=== PATIENT | female | born 1980 | race Caucasian/White ===

== ENCOUNTER 2024-04-08 10:37 | Emergency (ER) | payer OTHER, SELFPAY ==
[2024-04-08 10:38] VITALS: BMI 27.3
[2024-04-08 10:43] VITALS: BP 108/69; PULSE 92; RESP 16; TEMP 36.6; O2SAT 97
--- NOTE | 2024-04-08 10:46 | XR_ITS ---
Examination: Tibia-Fibula, left , 2 views Technique: Tibia-fibula AP lateral 2 views Date and time of exam: March 11, 2024 1054 hours INDICATIONS: Injury to lower leg yesterday, lower leg pain. FINDINGS: Acute nondisplaced fractures distal fibula Tibia intact IMPRESSION: Acute nondisplaced fractures distal fibula
--- NOTE | 2024-04-08 10:46 | XR_ITS ---
EXAMINATION: Ankle, left 3 views . Technique: Ankle AP, oblique, lateral 3 views Date and time of exam: April 08, 2024 1054 hours INDICATIONS: Injury to the ankle yesterday ankle pain. FINDINGS: Acute fractures distal fibula, without significant displacement No ankle dislocation IMPRESSION: Acute fractures distal fibular
--- NOTE | 2024-04-08 10:54 | PD.EDANKLE ---
Lower Extremity Injury RME/HPI General Chief Complaint: Ankle/Foot Injury Stated Complaint: FALL YESTERDAY, LEFT LEG/ANKLE PAIN Time Seen by Provider: 04/08/24 10:47 Source: patient Arrival date/time: 04/08/24 10:37 44-year-old female with no known medical history presents to the emergency room with a chief complaint of left ankle and leg pain after a fall that occurred yesterday afternoon. Mode of arrival: ambulatory Limitations: no limitations Related Data Allergies Allergy/AdvReac Type Severity Reaction Status Date / Time No Known Allergies Allergy Verified 04/08/24 10:38 Review of Systems Review of Systems Systems Reviewed: All systems reviewed, normal except as documented Constitutional Constitutional: Reports system reviewed and no additional complaints, except as documented, Denies fatigue, Denies fever(s), Denies headache(s) and Denies weakness Eyes Eyes: Reports system reviewed and no additional complaints, except as documented, Denies blurry vision and Denies change in vision ENT Ears, Nose, Mouth, and Throat: Reports system reviewed and no additional complaints, except as documented, Denies otalgia, Denies headache(s), Denies nasal congestion, Denies throat swelling and Denies vertigo Cardiovascular Cardiovascular: Reports system reviewed and no additional complaints, except as documented, Denies chest pain, Denies dyspnea and Denies dyspnea on exertion Respiratory Respiratory: Reports system reviewed and no additional complaints, except as documented, Denies chest congestion, Denies cough, Denies dyspnea, Denies dyspnea on exertion and Denies wheezing Gastrointestinal Gastrointestinal: Reports system reviewed and no additional complaints, except as documented, Denies abdominal pain, Denies cramping, Denies nausea and Denies vomiting Genitourinary Genitourinary: Reports system reviewed and no additional complaints, except as documented Musculoskeletal Musculoskeletal: Reports system reviewed and no additional complaints, except as documented, Reports abnormal gait, Reports arthralgias, Denies back pain and Reports limited range of motion Integumentary/Breasts Skin/Breast: Reports system reviewed and no additional complaints, except as documented and Denies wounds Neurologic Neurologic: Reports system reviewed and no additional complaints, except as documented, Reports abnormal gait, Denies confusion, Denies headache(s), Denies lack of coordination, Denies vertigo and Denies weakness Psychiatric Psychiatric: Reports system reviewed and no additional complaints, except as documented, Denies anxiety, Denies confusion, Denies depression, Denies paranoia, Denies suicidal ideation and Denies tactile hallucinations Endocrine Endocrine: Reports system reviewed and no additional complaints, except as documented and Denies fatigue Hematologic/Lymphatic Hematologic/Lymphatic: Reports system reviewed and no additional complaints, except as documented and Denies lymphadenopathy Allergic/Immunologic Allergic/Immunologic: Reports system reviewed and no additional complaints, except as documented, Denies throat swelling, Denies urticaria and Denies wheezing Past Medical History Social History SMOKING STATUS: Never smoker ED Exam General Limitations: Present no limitations General appearance: Present alert and in no apparent distress Head Head exam: Present atraumatic Eye Eye exam: Present normal appearance, PERRL and EOMI ENT ENT exam: Present normal exam, normal oropharynx and mucous membranes moist Neck Neck exam: Present normal inspection, full ROM and trachea midline Chest Chest inspection: Present normal inspection and symmetric chest wall rise Respiratory Respiratory exam: Present normal lung sounds bilaterally Cardiovascular Cardiovascular exam: Present regular rate, normal rhythm and normal heart sounds Abdominal Exam Abdominal exam: Present soft and normal bowel sounds Extremities Exam Extremities exam: Present normal inspection and full ROM Expanded Lower Extremity Exam Hip/Pelvis exam: Present normal inspection Upper leg exam: Present normal inspection Knee exam: Present normal inspection Lower leg exam: Present tenderness and swelling; Absent full ROM Ankle exam: Present tenderness and swelling; Absent full ROM Gait: observed and limited by pain and unable to bear weight Back Exam Back exam: Present normal inspection and full ROM Neurological Exam Neurological exam: Present alert, oriented X3 and CN II-XII intact Psychiatric Psychiatric exam: Present normal affect and normal mood Skin Skin exam: Present warm, dry, intact and normal color Course Quality Measures none Orders Category Date Time Status Splint / Immobilizer STAT Care 04/08/24 11:37 Active XR ankle comp LT min 3V Stat Exams 04/08/24 10:46 Completed XR tibia fibula LT 2V Stat Exams 04/08/24 10:46 Completed Vital Signs Vital signs: Vital Signs Temperature 97.8 F 04/08/24 10:43 Pulse Rate 92 04/08/24 10:43 Respiratory Rate 16 04/08/24 10:43 Blood Pressure 108/69 04/08/24 10:43 Pulse Oximetry (%) 97 04/08/24 10:43 Oxygen Delivery Method Room Air 04/08/24 10:43 Extremity Injury, Lower MDM Narrative MDM Narrative:: 44-year-old female with no known medical history presents to the emergency room with a chief complaint of left ankle and leg pain after a fall that occurred yesterday afternoon. Patient is hemodynamically stable and in no apparent distress Physical examination shows pain and tenderness to the patient's left ankle and left tib-fib area. Patient is unable to bear weight and has very limited range of motion. The area is very tender to the touch and swollen. X-ray of the left tib-fib was completed and shows an acute nondisplaced fracture of the distal fibula. A posterior short leg splint was placed patient was given crutches and educated that she will need to follow-up with her primary care provider to get a referral to an pharmacovigilance specialist. Patient was educated return to the emergency room for any evidence of worsening signs or symptoms Patient data External records reviewed:: [facility] previous records Clinical information provided by:: patient Social determinants that could affect healthcare access:: none Patient has the following chronic illnesses:: No chronic illness How is presenting disease/condition affected by chronic disease/condition?: no chronic disease Evaluation data The following diagnostics were reviewed and interpreted by me:: lab results and radiology exam(s) Lab and/or radiology exams considered but not ordered:: Labs and radiology exams considered and ordered Interpretation Summary: Tib-fib [id number]: Acute nondisplaced fractures distal fibula Tibia intact IMPRESSION: Acute nondisplaced fractures distal fibula Medications / Prescriptions Medications or Prescriptions considered but not ordered:: N/A Medication administrations:: N/A Consultations Consultation(s) initiated? (list below): No Diagnosis Extremity Injury, Lower Differential Diagnosis: ankle sprain and strain, acute internal derangement of knee, ankle fracture and other (Acute nondisplaced fracture of the distal fibula) Most likely diagnosis given after review of the tests above:: Acute nondisplaced fracture of the distal fibula Admission Indicated Admission indicated?: not indicated Admission Request Was there a request for admission?: No Disposition Plan Disposition Plan: Discharge Discharge Attestation Discharge Attestation: The patient and all family members were given an opportunity to ask questions and understood the discharge instructions. Discharge instructions specifically effects, indications for sooner follow up or return to the emergency department, and the expected course of current diagnosis. Patient condition: Stable Discharge Plan Plan Patient Disposition: HOME (Self Care) Disposition Comment: Stable Problem List Clinical Impression: Fracture of distal end of fibula Patient/Caregiver Discharge Instructions Education Materials: First Aid: Sprains and Fractures, How Bones Heal, ED Ankle Fracture, Distal Fibula Additional Instructions: Please follow-up with your primary care provider in the next 24 to 48 hours. You will need a referral to an pharmacovigilance specialist to manage the fracture. Please keep your splint in place until you are seen and cleared by pharmacovigilance specialist For any evidence of worsening signs or symptoms return to the emergency room immediately Print Language: [place] Stand Alone Forms: Leigha Award Info., Patient Portal Info Letter PA/TECHNOLOGY RESOURCE TEACHER Supervising Physician PA/TECHNOLOGY RESOURCE TEACHER Supervising Physician: Dr Shoemaker
== END 2024-04-08 12:22 | disposition home or self-care (01) ==
PROVIDERS: Emergency Provider Emergency Medicine
DX: S82.832A Other fracture of upper and lower end of left fibula, initial encounter for closed fracture (principal); W19.XXXA Unspecified fall, initial encounter
CPT/HCPCS: 29515; 73590; 73610; 99283

== ENCOUNTER → 2024-04-15 | Outpatient (CLI) | payer OTHER, SELFPAY ==
--- NOTE | 2024-04-15 13:46 | XR_ITS ---
EXAMINATION: Ankle, left 3 views . Technique: Ankle AP, oblique, lateral 3 views Date and time of exam: April 15, 2024 1501 hrs. Indications: Patient fell one week ago with injury to the ankle, ankle pain. Findings: Stable alignment and early healing fracture distal fibular shaft compared with April 08, 2024 No ankle dislocation Impression: Stable alignment and early healing fracture distal fibular shaft
== END | disposition home or self-care (01) ==
LOC: COPL 13:36 → CDIM 05-06 14:51
PROVIDERS: Referring Provider Orthopaedic Surgery; Visit Provider Orthopaedic Surgery
DX: S82.65XA Nondisplaced fracture of lateral malleolus of left fibula, initial encounter for closed fracture (principal); W19.XXXA Unspecified fall, initial encounter
CPT/HCPCS: 73610

== ENCOUNTER → 2024-04-22 | Outpatient (CLI) | payer OTHER, SELFPAY ==
--- NOTE | 2024-04-22 15:35 | XR_ITS ---
EXAMINATION: Ankle, left 3 views . Technique: Ankle AP, oblique, lateral 3 views Date and time of exam: April 22, 2024 1520 hours INDICATIONS: Patient fell 2 weeks ago with injury to the ankle, ankle pain. FINDINGS: Early healing fracture distal fibular shaft with stable alignment compared with April 15, 2024 No ankle dislocation IMPRESSION: Early healing fracture distal fibular shaft with stable alignment compared with April 15, 2024
== END | disposition home or self-care (01) ==
PROVIDERS: Referring Provider Orthopaedic Surgery; Visit Provider Orthopaedic Surgery
DX: S82.402A Unspecified fracture of shaft of left fibula, initial encounter for closed fracture (principal); W19.XXXA Unspecified fall, initial encounter
CPT/HCPCS: 73610

== ENCOUNTER → 2024-05-06 | Outpatient (CLI) | payer OTHER, SELFPAY ==
--- NOTE | 2024-05-06 11:56 | XR_ITS ---
EXAMINATION: Ankle, left 3 views . Technique: Ankle AP, oblique, lateral 3 views Date and time of exam: May 06, 2024 1254 hours Comparison April 22, 2024 INDICATIONS: Fracture fibular April 22, 2024, April 08, 2024 FINDINGS: Early healing fracture distal fibular shaft Stable alignment IMPRESSION: Early healing fracture distal fibular shaft
== END | disposition home or self-care (01) ==
PROVIDERS: Referring Provider Orthopaedic Surgery; Visit Provider Orthopaedic Surgery
DX: S82.492A Other fracture of shaft of left fibula, initial encounter for closed fracture (principal); X58.XXXA Exposure to other specified factors, initial encounter
CPT/HCPCS: 73610

== ENCOUNTER → 2024-05-27 | Outpatient (CLI) | payer OTHER, SELFPAY ==
--- NOTE | 2024-05-27 11:40 | XR_ITS ---
EXAMINATION: Ankle, left 3 views . Technique: Ankle AP, oblique, lateral 3 views Date and time of exam: May 27, 2024 1255 hours Comparison May 06, 2024 INDICATIONS: Ankle fracture April 08, 2024 FINDINGS: Healing fractures distal fibular shaft with stable and satisfactory alignment No ankle dislocation IMPRESSION: Healing fractures distal fibular shaft with stable and satisfactory alignment
== END | disposition home or self-care (01) ==
LOC: SDIM 11:30
PROVIDERS: Referring Provider Orthopaedic Surgery; Visit Provider Orthopaedic Surgery
DX: S82.492A Other fracture of shaft of left fibula, initial encounter for closed fracture (principal); X58.XXXA Exposure to other specified factors, initial encounter
CPT/HCPCS: 73610

== ENCOUNTER 2024-07-03 16:30 | Outpatient (RCR) | payer OTHER, SELFPAY ==
--- NOTE | 2024-06-17 11:41 | PTNOTE_ITS ---
PT OP Initial Eval Patient Information Outpatient Physical Therapy Treatment Date: 06/17/24 Visit Reasons: FRACTURE Medical Diagnosis: L distal fibula FX Treatment Dx #1: L ankle pain Start of Care: 06/17/24 Date of Onset: 04/08/24 Smoking Status Smoking Status: Never smoker Initial Assessment Subjective: Pt is 44 yr old female who fell and fractured the L distal fibula in April. She was in a boot which she used for 6 weeks. Now she is ambulating without the boot and reports low pain with walking on even ground and some pain with uneven ground. PMH: none reported Imaging: Xrays in EMR Healing fractures distal fibular shaft with stable and satisfactory alignment Pt goal: to make sure the ankle heals in order to RTW Objective: L ankle AROM: DF: 5 deg PF: 40 deg with pain Inv/Eversion 15 deg Strength: Ankle DF 4/5 Heel raise B slowly TTP: min of lateral malleolus Sensation: intact to light touch of L foot. Gait: symmetrical with good WB on L Assessment: Pt presentation consistent with referring Dx with decreased ROM and strength of L ankle and difficulty ambulating on uneven surfaces. Pt requires skilled therapy to meet goals and has good rehab potential. 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 Independent with HEP ? 2. Improved DF ROM to 10 deg and PF to 50 deg ? 3. 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 4. Improved ambulatory distance to community distances with symmetrical gait pattern on even/uneven ground Treatment Plan ? 1. Manual therapy ? 2. Therex ? 3. Modalities as indicated, moist heat, ice, estim Frequency and Duration: 2x a week for 5 weeks Certification Dates: 06/17/24 to 09/15/24 Procedure Charges OP PT Eval Mod Complex 30 minutes: Yes
--- NOTE | 2024-06-24 14:48 | PT.ODAYNRPT ---
PT Outpatient Daily Note OP Daily Note Outpatient Physical Therapy Treatment Date: 06/24/24 Visit Reasons: FRACTURE Subjective: Some L ankle burning with calf stretches Objective: See F/S for therex Assessment: Low pain level with most therex today of L ankle Plan: Continue per POC Length of Time (minutes) of Treatment: 30 Minutes Procedure Charges Therapeutic Exercise 30 minutes: Yes
--- NOTE | 2024-06-28 14:35 | PT.ODAYNRPT ---
PT Outpatient Daily Note OP Daily Note Outpatient Physical Therapy Treatment Date: 06/28/24 Visit Reasons: FRACTURE Subjective: Pt reports leg is progressing. Objective: Please see flow sheet for ther ex list. Assessment: Added resistance for lateral stepping, pt c/o knee pain but pain resolved when pt instructed to avoid locking knees in extension during exercise. Plan: Continue with POC. Length of Time (minutes) of Treatment: 30 Minutes Procedure Charges Therapeutic Exercise 30 minutes: Yes
--- NOTE | 2024-07-03 18:25 | PT.ODAYNRPT ---
PT Outpatient Daily Note OP Daily Note Outpatient Physical Therapy Treatment Date: 07/03/24 Visit Reasons: FRACTURE Subjective: Overall better with less L ankle pain Objective: See F/S for therex Assessment: Low pain level with most therex today of L ankle Plan: Continue per POC Length of Time (minutes) of Treatment: 30 Minutes Procedure Charges Therapeutic Exercise 30 minutes: Yes
== END 2024-07-06 23:59 | disposition home or self-care (01) ==
LOC: CPTX 16:30
PROVIDERS: PCP Orthopaedic Surgery; Referring Provider Orthopaedic Surgery; Visit Provider Orthopaedic Surgery
DX: M25.572 Pain in left ankle and joints of left foot (principal); S82.832D Other fracture of upper and lower end of left fibula, subsequent encounter for closed fracture with routine healing; W19.XXXD Unspecified fall, subsequent encounter
CPT/HCPCS: 97110; 97162

== ENCOUNTER → 2024-07-08 | Outpatient (CLI) | payer OTHER, SELFPAY ==
--- NOTE | 2024-07-08 14:33 | XR_ITS ---
EXAMINATION: Ankle, left 3 views . Technique: Ankle AP, oblique, lateral 3 views Date and time of exam: July 08, 2024 at 1452 hours INDICATIONS: Ankle fracture history 2 months ago FINDINGS: Significant partial healing fracture distal fibular shaft with stable and satisfactory alignment compared with May 27, 2024 IMPRESSION: Partial healing fracture distal fibular shaft with stable and satisfactory alignment
== END | disposition home or self-care (01) ==
PROVIDERS: Referring Provider Orthopaedic Surgery; Visit Provider Orthopaedic Surgery
DX: S82.65XD Nondisplaced fracture of lateral malleolus of left fibula, subsequent encounter for closed fracture with routine healing (principal); X58.XXXD Exposure to other specified factors, subsequent encounter
CPT/HCPCS: 73610

== ENCOUNTER 2024-07-17 08:30 | Outpatient (RCR) | payer OTHER, SELFPAY ==
--- NOTE | 2024-07-08 15:27 | PT.ODAYNRPT ---
PT Outpatient Daily Note OP Daily Note Outpatient Physical Therapy Treatment Date: 07/08/24 Visit Reasons: Fracture of left tibia Subjective: Pt reports ankle is feeling better, had x-ray done and it shows that ankle is healing. Objective: Please see flow sheet for ther ex list. Assessment: Progression of interventions tolerated well. Pt reports some discomfort with heel raises but tolerable enough pt can complete reps. Plan: Assess response to PT session. Length of Time (minutes) of Treatment: 30 Minutes Procedure Charges Therapeutic Exercise 30 minutes: Yes
--- NOTE | 2024-07-17 09:28 | PT.ODAYNRPT ---
PT Outpatient Daily Note OP Daily Note Outpatient Physical Therapy Treatment Date: 07/17/24 Visit Reasons: Fracture of left tibia Subjective: Overall better with less L ankle pain Objective: See F/S for therex Assessment: Low pain level with therex today of L ankle Plan: Continue per POC Length of Time (minutes) of Treatment: 30 Minutes Procedure Charges Therapeutic Exercise 30 minutes: Yes
== END 2024-08-05 23:59 | disposition home or self-care (01) ==
LOC: CPTX 08:30
PROVIDERS: PCP Orthopaedic Surgery; Referring Provider Orthopaedic Surgery; Visit Provider Orthopaedic Surgery
DX: M25.572 Pain in left ankle and joints of left foot (principal); S82.832D Other fracture of upper and lower end of left fibula, subsequent encounter for closed fracture with routine healing; W19.XXXD Unspecified fall, subsequent encounter
CPT/HCPCS: 97110